=== PATIENT | male | born 1985 | race Caucasian/White ===

== ENCOUNTER 2018-08-30 23:44 | Emergency (ER) | payer OTHER ==
[~2018-08-30] VITALS: Ht 188 cm; Wt 149.7 kg
[2018-08-31 00:45] LABS: ABSOLUTE NEUTROPHILS 5.2 thou/uL (1.4-8.2); BASOPHILS 0.3 % (0.0-2.0); HEMOGLOBIN 14.8 gm/dL (14.0-18.0); LYMPHOCYTES 31.8 % (24.0-44.0); MCH 31.2 pg (26.0-34.0); MCHC 34.4 g/dL (28.0-37.0); MCV 90.7 fL (80.0-100.0); PLATELET COUNT 228 thou/uL (150-400); POLYS 58.9 % (36.0-66.0); RBC 4.74 mil/uL (4.50-6.00); RDW 13.6 % (10.5-14.5); WBC 8.8 thou/uL (4.0-11.0)
[2018-08-31 00:47] LABS: ANION GAP 10 mmol/L (7-16); BUN 14 mg/dL (7-18); CHLORIDE 105 mmol/L (98-107); CO2 26 mmol/L (21-32); CREATININE 0.9 mg/dL (0.7-1.3); GLUCOSE 149 mg/dL (74-106); POTASSIUM 3.6 mmol/L (3.5-5.1); SODIUM 141 mmol/L (136-145)
[2018-08-31 00:58] LABS: ALBUMIN 3.6 g/dL (3.4-5.0); DIRECT BILIRUBIN < 0.1 mg/dL (<0.1-0.3); LIPASE 170 U/L (73-393); SGOT 25 U/L (15-37); SGPT 46 U/L (30-65); TOTAL BILIRUBIN 0.2 mg/dL (<0.1-1.0); TOTAL PROTEIN 7.1 g/dL (6.4-8.2); TROPONIN-I <0.06 ng/mL (<0.06)
[2018-08-31] MEDS ORDERED: ZOFRAN ODT4 MG PO (01:31)
[2018-08-31 01:57] VITALS: BP 124/74
--- NOTE | 2018-09-01 09:29 | EKG ---
[address] [address] ELECTROCARDIOGRAM REPORT Name: RUTHANN ANDERSON Room #: [facility]#: [id number] ������������������ Admission: 08/30/18 ������������������ Attend Phys: Discharge: 08/31/18 ������������������ Date of : 81 Report #: [id number] ����������������������������������������������������������������� [id number] THIS REPORT FOR: //name// [facility] ED Test Date: 2018-08-31 Test Time: 00:49:03 Pat Name: RUTHANN ANDERSON Department: Room: Gender: M [employer]: TIFFANY : 1985 Requested By: Jimenez Lee Order Number: [id number] MD: Endy Lopez Measurements Intervals [place] Rate: 80 P: 30 FL: 145 QRS: 18 QRSD: 97 T: 8 QT: 355 QTc: 410 Interpretive Statements Sinus rhythm Borderline T wave abnormalities Compared to ECG 06/05/2014 08:24:43 T-wave abnormality now present Electronically Signed On 09-01-2018 9:29:37 CDT by Endy Lopez [email or web address] ��������������������������������������������� <ELECTRONICALLY SIGNED> ���������������������������������������� By: Endy Lopez MD, [facility] ��������������������������������������������� 09/01/18 0929 D: 04/48 004 Endy Lopez MD, FACC /EPI
== END 2018-08-31 01:58 | disposition home or self-care (01) ==
LOC: ER 23:44
PROVIDERS: Emergency Medicine
DX: R11.2 Nausea with vomiting, unspecified (principal); F17.210 Nicotine dependence, cigarettes, uncomplicated; Z88.1 Allergy status to other antibiotic agents; Z88.8 Allergy status to other drugs, medicaments and biological substances